=== PATIENT | female | born 1980 | race Caucasian/White ===

== ENCOUNTER 2020-01-24 16:45 | Inpatient (IN) | payer OTHER ==
[~2020-01-24] VITALS: Ht 162.6 cm; Wt 99.3 kg
[~2020-01-24 16:45] MED LIST: FERR1TAB24 PO; FOLI0.4T2 PO; PREN1TAB52 PO
[2020-01-24] MEDS ORDERED: FentaNYL CITRATE-PF 100 MCG/2 ML VIAL IVP PRN (17:00)
[2020-01-24] MEDS ORDERED: CITRIC ACID/SODIUM CITRATE 30 ML SOLUTION UDCUP PO PRN (17:00)
[2020-01-24] MEDS ORDERED: OXYTOCIN 30 UNITS/LACT RINGERS 500 ML IV ONE (17:00)
[2020-01-24] MEDS ORDERED: RINGERS SOLUTION,LACTATED 1,000 ML IV PRN (17:00)
[2020-01-24] MEDS ORDERED: METOCLOPRAMIDE HCL 5 MG/ML 2 ML VIAL IVP PRN (17:00)
[2020-01-24] MEDS ORDERED: LIDOCAINE/PF 1% 30 ML VIAL INJ PRN (17:00)
[2020-01-24] MEDS: RINGERS SOLUTION,LACTATED 1,000 ML IV SCH (18:10)
[2020-01-24 19:14] LABS: BASOPHILS % (AUTO) 0.5 % (0.0-2.0); EOSINOPHILS % (AUTO) 1.9 % (1.0-6.0); HEMATOCRIT 35.1 % (36-46); HEMOGLOBIN 11.8 g/dL (12.0-16.0); LYMPHOCYTES # (AUTO) 1.3 K/uL (1.0-4.8); LYMPHOCYTES % (AUTO) 16.4 % (22.0-44.0); MEAN CORPUSCULAR HEMOGLOBIN 29.4 pg (26.0-34.0); MEAN CORPUSCULAR HGB CONC 33.8 G/dL (31.0-37.0); MEAN CORPUSCULAR VOLUME 87 fL (80-100); MONOCYTES # (AUTO) 0.6 K/uL (0.1-1.0); MONOCYTES % (AUTO) 7.8 % (2.0-9.0); NEUTROPHILS # (AUTO) 5.6 K/uL (1.8-7.7); NEUTROPHILS % (AUTO) 73.4 % (40.0-70.0); PLATELET COUNT (AUTO)-OB 267 K/uL (150-450); RED BLOOD CELL COUNT(AUTO) 4.03 MIL/uL (4.00-5.20); RED CELL DISTRIBUTION WIDTH 14.5 % (11.5-14.5)
[2020-01-24 19:33] LABS: COVID AG,FIA SOURCE NASOPHARYNGEAL
[2020-01-24 19:43] LABS: ANION GAP 11 mmol/L (8-16); CALCIUM, TOTAL 8.7 mg/dL (8.8-10.5); CARBON DIOXIDE 23 mmol/L (22-29); CHLORIDE 106 mmol/L (98-107); CREATININE 0.78 mg/dL (0.60-1.30); GLOMERULAR FILTR. RATE CALC > 60 mL/min (>60); GLUCOSE,RANDOM 122 mg/dL (70-110); POTASSIUM 3.8 mmol/L (3.5-5.1); SODIUM SERUM 140 mmol/L (136-145); UREA NITROGEN, BLOOD 11 mg/dL (7-18)
[2020-01-24 19:49] LABS: ALANINE AMINOTRANSFERASE 17 U/L (12-78); ALBUMIN 2.2 g/dL (3.4-5.0); ALKALINE PHOSPHATASE 158 U/L (46-116); ASPARTATE AMINOTRANSFERASE 18 U/L (15-37); BILIRUBIN,TOTAL 0.3 mg/dL (0.1-1.0); TOTAL PROTEIN, SERUM 6.4 g/dL (6.4-8.2); URIC ACID 6.6 mg/dL (2.6-7.2)
[2020-01-24] MEDS ORDERED: OXYGEN THERAPY IH SCH (20:00)
[2020-01-24] MEDS ORDERED: MISOPROSTOL 25 MCG TABLET PO ONE (20:30)
[2020-01-25] MEDS: RINGERS SOLUTION,LACTATED 1,000 ML IV SCH ×4 (00:51→18:03)
[2020-01-25] MEDS ORDERED: MISOPROSTOL 50 MCG TABLET PO ONE (01:15)
[2020-01-25] MEDS ORDERED: MISOPROSTOL 50 MCG TABLET PO SCH (05:00)
[2020-01-25] MEDS ORDERED: OXYTOCIN 30 UNITS/LACT RINGERS 500 ML IV PRN (09:15)
[2020-01-25] MEDS ORDERED: ROPIVACAINE HCL/PF 0.2% 100 ML ED ONE (09:46)
[2020-01-25] MEDS ORDERED: DiphenhydrAMINE HCL 50 MG/ML VIAL IVP PRN (10:00)
[2020-01-25] MEDS ORDERED: ONDANSETRON HCL 4 MG/2 ML VIAL IVP PRN (10:00)
[2020-01-25] MEDS ORDERED: NALBUPHINE HCL 10 MG/ML VIAL IVP PRN (10:00)
[2020-01-25] MEDS: ROPIVACAINE HCL/PF 0.2% 100 ML ED PRN (16:48)
[2020-01-26] MEDS: ROPIVACAINE HCL/PF 0.2% 100 ML ED PRN ×3 (00:44→14:37)
[2020-01-26] MEDS: RINGERS SOLUTION,LACTATED 1,000 ML IV SCH ×2 (02:31→10:48)
[2020-01-26] MEDS ORDERED: IBUPROFEN 800 MG TABLET PO PRN (15:30)
[2020-01-26] MEDS ORDERED: OXYTOCIN 30 UNITS/LACT RINGERS 500 ML IV ONE (15:30)
[2020-01-26] MEDS ORDERED: BENZOCAINE 20%/MENTHOL 56 GM SPRAY CANISTER TP PRN (15:30)
[2020-01-26] MEDS ORDERED: GLYCERIN/WITCH HAZEL LEAF 40 PADS JAR TP PRN ×2 (15:30)
[2020-01-26] MEDS ORDERED: MAGNESIUM HYDROXIDE SUSPENSION 30 ML UDCUP PO PRN ×2 (15:30)
[2020-01-26] MEDS ORDERED: OxyCODONE HCL/ACETAMINOPHEN 5-325 MG TABLET PO PRN ×4 (15:30)
[2020-01-26] MEDS ORDERED: LANOLIN 7 GM OINTMENT TP PRN ×2 (15:30)
[2020-01-26] MEDS ORDERED: LIDOCAINE/PF 1% 30 ML VIAL INJ PRN (15:30)
[2020-01-26] MEDS: IBUPROFEN 800 MG TABLET PO PRN ×2 (15:52→22:07)
[2020-01-26] MEDS ORDERED: INFLUENZA VIRUS VACCINE QVS 2020-21 (6MO+)/PF 60 MCG/0.5 ML SYRINGE IM ONE (18:15)
[2020-01-27 07:04] LABS: BASOPHILS % (AUTO) 0.4 % (0.0-2.0); EOSINOPHILS % (AUTO) 1.1 % (1.0-6.0); HEMATOCRIT 32.5 % (36-46); HEMOGLOBIN 11.4 g/dL (12.0-16.0); LYMPHOCYTES # (AUTO) 1.4 K/uL (1.0-4.8); LYMPHOCYTES % (AUTO) 12.1 % (22.0-44.0); MEAN CORPUSCULAR HEMOGLOBIN 30.9 pg (26.0-34.0); MEAN CORPUSCULAR VOLUME 88 fL (80-100); MONOCYTES # (AUTO) 0.7 K/uL (0.1-1.0); NEUTROPHILS # (AUTO) 9.1 K/uL (1.8-7.7); NEUTROPHILS % (AUTO) 80.4 % (40.0-70.0); PLATELET COUNT (AUTO)-OB 230 K/uL (150-450); RED BLOOD CELL COUNT(AUTO) 3.68 MIL/uL (4.00-5.20); RED CELL DISTRIBUTION WIDTH 14.6 % (11.5-14.5)
[2020-01-27] MEDS: IBUPROFEN 800 MG TABLET PO PRN ×2 (08:33→14:27)
[2020-01-27] MEDS ORDERED: FERR-89 PO (14:05)
[2020-01-27] MEDS ORDERED: IBUP-2071 PO (14:05)
[2020-01-27] MEDS ORDERED: DOCU-275 PO (14:06)
== END 2020-01-27 16:00 | disposition home or self-care (01) | DRG 807 ==
LOC: OBSVTOIN 16:45 → 4S 16:45
PROVIDERS: ADMIT Obstetrics & Gynecology; ATTEND Obstetrics & Gynecology
PROC: 10E0XZZ Delivery of Products of Conception, External Approach (ICD-10-PCS; principal; 2020-01-26)
PROC: 0HQ9XZZ Repair Perineum Skin, External Approach (ICD-10-PCS; 2020-01-26)
PROC: 10907ZC Drainage of Amniotic Fluid, Therapeutic from Products of Conception, Via Natural or Artificial Opening (ICD-10-PCS; 2020-01-26)
PROC: 3E0S3BZ Introduction of Anesthetic Agent into Epidural Space, Percutaneous Approach (ICD-10-PCS; 2020-01-26)
PROC: 00HU33Z Insertion of Infusion Device into Spinal Canal, Percutaneous Approach (ICD-10-PCS; 2020-01-26)
DX: O13.4 Gestational [pregnancy-induced] hypertension without significant proteinuria, complicating childbirth (principal); Z37.0 Single live birth; Z20.828 Contact with and (suspected) exposure to other viral communicable diseases; O70.0 First degree perineal laceration during delivery; Z3A.38 38 weeks gestation of pregnancy
CPT/HCPCS: 84550; 86850; 86900; 86901; 87426; 90686; J2590; J2795; J7120